=== PATIENT | female | born 1965 | race Hispanic/Latino ===

== ENCOUNTER 2020-04-22 11:02 | Emergency (ER) | payer OTHER, SELFPAY ==
[2020-04-22 12:17] LABS: APPEARANCE,URINE Clear (CLEAR); BILIRUBIN,URINE Negative (NEGATIVE); COLOR,URINE Yellow (YELLOW); GLUCOSE, URINE (UA) Negative (NEGATIVE); KETONES,URINE Negative (NEGATIVE); LEUKOCYTE ESTERASE ,URINE Small (NEGATIVE); NITRATE,URINE Negative (NEGATIVE); OCCULT BLOOD,URINE Small (NEGATIVE); PROTEIN,URINE Negative (NEGATIVE); UROBILINOGEN,URINE 0.2 mg/dL (0.2-1.0)
[2020-04-22 12:36] LABS: BACTERIA,URINE Rare /HPF (None Seen); RBC,URINE 0-1 /HPF (0-1); SQUAMOUS EPITHELIAL CELL,UR Rare /HPF (0-2); WBC,URINE 0-1 /HPF (0-1)
[2020-04-22 13:16] LABS: BASOPHILS % (AUTO) 0.4 % (0.0-5.0); HEMATOCRIT 40.9 % (36-48); LYMPHOCYTES % (AUTO) 54.8 % (21.0-51.0); MEAN CORPUSCULAR HEMOGLOBIN 29.7 pg (27.0-33.0); MEAN CORPUSCULAR HGB CONC 33.5 g/dL (32.0-36.0); MEAN CORPUSCULAR VOLUME 88.5 fL (79-99); NEUTROPHILS % (AUTO) 38.7 % (40.0-77.0); PLATELET COUNT (AUTO) 211 K/uL (130-400); RED BLOOD CELL COUNT(AUTO) 4.62 MIL/uL (4.00-5.50); RED CELL DISTRIBUTION WIDTH 12.9 % (11.0-15.5)
[2020-04-22 14:01] LABS: BILIRUBIN,TOTAL 0.4 mg/dL (0.2-1.0); POTASSIUM 3.9 mmol/L (3.5-5.1); TOTAL PROTEIN, SERUM 8.2 g/dL (6.0-8.3)
[2020-04-22 14:25] LABS: ALBUMIN 3.9 g/dL (3.5-5.0)
== END 2020-04-22 14:32 | disposition home or self-care (01) ==
LOC: EDH 11:02
DX: E16.2 Hypoglycemia, unspecified (principal); I10 Essential (primary) hypertension; Z90.49 Acquired absence of other specified parts of digestive tract; Z90.710 Acquired absence of both cervix and uterus; Z88.8 Allergy status to other drugs, medicaments and biological substances
CPT/HCPCS: 36415; 80053; 81001; 82948; 85025; 93005

== ENCOUNTER 2020-08-28 15:34 | Emergency (ER) | payer OTHER, SELFPAY ==
[2020-08-28] MEDS ORDERED: ACETAMINOPHEN 325 MG TAB ONE (16:10)
[2020-08-28] MEDS ORDERED: IBUPROFEN 600 MG TABLET ONE (16:10)
== END 2020-08-28 17:54 | disposition home or self-care (01) ==
LOC: EDH 15:34
DX: R50.9 Fever, unspecified (principal); R05 Cough; R09.81 Nasal congestion; Z20.828 Contact with and (suspected) exposure to other viral communicable diseases; I10 Essential (primary) hypertension; E11.9 Type 2 diabetes mellitus without complications; Z88.8 Allergy status to other drugs, medicaments and biological substances
CPT/HCPCS: 71045; 87804

== ENCOUNTER 2024-06-03 18:30 | Observation (INO) | payer OTHER ==
[~2024-06-03] VITALS: Ht 167.6 cm; Wt 68.0 kg
[2024-06-03 18:58] LABS: BASOPHILS # (AUTO) 0.04 K/uL (0.00-0.20); BASOPHILS % (AUTO) 0.4 % (0.0-5.0); EOSINOPHILS # (AUTO) 0.11 K/uL (0.00-0.70); EOSINOPHILS % (AUTO) 1.1 % (0.0-8.0); HEMATOCRIT 38.7 % (36-48); IMMATURE GRANULOCYTE ABSOLUTE 0.02 K/uL (0-1); LYMPHOCYTES # (AUTO) 4.6 K/uL (1.0-4.8); LYMPHOCYTES % (AUTO) 48.3 % (21.0-51.0); MEAN CORPUSCULAR HEMOGLOBIN 29.9 pg (27.0-33.0); MEAN CORPUSCULAR HGB CONC 33.9 g/dL (32.0-36.0); MEAN CORPUSCULAR VOLUME 88.4 fL (79-99); MONOCYTES # (AUTO) 0.5 K/uL (0.1-1.0); MONOCYTES % (AUTO) 5.6 % (3.0-13.0); NEUTROPHILS # (AUTO) 4.3 K/uL (1.8-7.7); NEUTROPHILS % (AUTO) 44.4 % (40.0-77.0); PLATELET COUNT (AUTO) 218 K/uL (130-400); RED BLOOD CELL COUNT(AUTO) 4.38 MIL/uL (4.00-5.50); RED CELL DISTRIBUTION WIDTH 12.6 % (11.0-15.5); WHITE BLOOD COUNT (AUTO) 9.6 K/uL (4.8-10.8)
[2024-06-03 19:05] LABS: CREATININE 0.9 mg/dL (0.5-1.0); POTASSIUM 4.6 mmol/L (3.5-5.1)
[2024-06-03 19:34] LABS: B-TYPE NATRIURETIC PEPTIDE 58 pg/mL (0-100)
[2024-06-03] MEDS: hydrALAZine 20MG/ML VIAL IV ONE ×2 (19:37→20:20)
[2024-06-03] MEDS ORDERED: niCARDIpine 25MG INJ 25 MG in 0.9% NACL 250ML 240 ML IV SCH (21:00)
[2024-06-03] MEDS: ondanSETRON 4MG INJ IVP ONE (22:00)
[2024-06-03] MEDS: ketOROlac 15MG/ML VIAL (15MG/ML) IV ONE (22:00)
[2024-06-03] MEDS: 0.9%NACL 1000ML 1,000 ML IV ONE (22:15)
[2024-06-03] MEDS ORDERED: PoTASSium chloRIDE 20MEQ/100ML 100 ML IV PRN (23:30)
[2024-06-03] MEDS ORDERED: ondanSETRON 4MG INJ IV PRN (23:30)
[2024-06-03] MEDS ORDERED: MAGNESIUM 2GM PREMIX 50ML 50 ML IV PRN (23:30)
[2024-06-03] MEDS ORDERED: PoTASSium chl 10% ELIXIR 20MEQ 20 MEQ/15 ML UDCUP PO PRN (23:30)
[2024-06-03] MEDS ORDERED: acetaMINOPHEN 325 MG TAB PO PRN ×2 (23:30)
[2024-06-03] MEDS ORDERED: PoTASSium chloRIDE 20MEQ ER 20 MEQ ERTAB PO PRN (23:30)
[2024-06-04] VITALS (10 sets, daily range): BP systolic 128–161; BP diastolic 52–68; PULSE 59–74; RESP 15–20; TEMP 98.1–98.7; O2SAT 100
[2024-06-04] MEDS ORDERED: ROSU40TA88 PO (01:43)
[2024-06-04] MEDS ORDERED: LOSA100T59 PO (01:43)
[2024-06-04] MEDS ORDERED: AMLO-257 PO (01:43)
[2024-06-04] MEDS: FAMOTIDINE 20MG TAB PO SCH (08:03)
[2024-06-04] MEDS: hydrALAZine 20MG/ML VIAL IV PRN (08:03)
[2024-06-04 08:42] LABS: BASOPHILS # (AUTO) 0.04 K/uL (0.00-0.20); BASOPHILS % (AUTO) 0.4 % (0.0-5.0); EOSINOPHILS # (AUTO) 0.09 K/uL (0.00-0.70); EOSINOPHILS % (AUTO) 0.9 % (0.0-8.0); HEMATOCRIT 38.6 % (36-48); IMMATURE GRANULOCYTE ABSOLUTE 0.02 K/uL (0-1); LYMPHOCYTES # (AUTO) 3.5 K/uL (1.0-4.8); LYMPHOCYTES % (AUTO) 36.7 % (21.0-51.0); MEAN CORPUSCULAR HEMOGLOBIN 29.9 pg (27.0-33.0); MEAN CORPUSCULAR HGB CONC 33.9 g/dL (32.0-36.0); MEAN CORPUSCULAR VOLUME 88.1 fL (79-99); MONOCYTES # (AUTO) 0.6 K/uL (0.1-1.0); MONOCYTES % (AUTO) 5.8 % (3.0-13.0); NEUTROPHILS # (AUTO) 5.4 K/uL (1.8-7.7); PLATELET COUNT (AUTO) 185 K/uL (130-400); RED BLOOD CELL COUNT(AUTO) 4.38 MIL/uL (4.00-5.50); RED CELL DISTRIBUTION WIDTH 13.1 % (11.0-15.5); WHITE BLOOD COUNT (AUTO) 9.6 K/uL (4.8-10.8)
[2024-06-04 08:50] LABS: HEMOGLOBIN A1C 6.3 % (4.0-6.0)
[2024-06-04 08:57] LABS: ALBUMIN 3.7 g/dL (3.5-5.0); BILIRUBIN,TOTAL 0.7 mg/dL (0.2-1.0); CREATININE 0.8 mg/dL (0.5-1.0); MAGNESIUM 2.1 mg/dL (1.80-2.40)
[2024-06-04] MEDS: LoSARTan 100 MG TABLET PO ONE (11:22)
[2024-06-04] MEDS: amLODIPine 5 MG TAB PO ONE (11:22)
[2024-06-04] MEDS: LACTATED RINGERS 1000ML 1,000 ML IV ONE (12:12)
[2024-06-04] MEDS: atorVAStatin 40 MG TABLET PO SCH (20:34)
[2024-06-05 04:00] VITALS: BP 134/71; PULSE 57; RESP 19; TEMP 98.3
[2024-06-05 04:56] LABS: BASOPHILS # (AUTO) 0.04 K/uL (0.00-0.20); BASOPHILS % (AUTO) 0.4 % (0.0-5.0); EOSINOPHILS # (AUTO) 0.14 K/uL (0.00-0.70); EOSINOPHILS % (AUTO) 1.5 % (0.0-8.0); HEMATOCRIT 38.2 % (36-48); IMMATURE GRANULOCYTE ABSOLUTE 0.02 K/uL (0-1); LYMPHOCYTES # (AUTO) 4.2 K/uL (1.0-4.8); LYMPHOCYTES % (AUTO) 44.3 % (21.0-51.0); MEAN CORPUSCULAR HEMOGLOBIN 30.3 pg (27.0-33.0); MEAN CORPUSCULAR HGB CONC 33.5 g/dL (32.0-36.0); MEAN CORPUSCULAR VOLUME 90.3 fL (79-99); MONOCYTES # (AUTO) 0.6 K/uL (0.1-1.0); MONOCYTES % (AUTO) 6.1 % (3.0-13.0); NEUTROPHILS # (AUTO) 4.5 K/uL (1.8-7.7); NEUTROPHILS % (AUTO) 47.5 % (40.0-77.0); PLATELET COUNT (AUTO) 192 K/uL (130-400); RED BLOOD CELL COUNT(AUTO) 4.23 MIL/uL (4.00-5.50); WHITE BLOOD COUNT (AUTO) 9.4 K/uL (4.8-10.8)
[2024-06-05 05:21] LABS: ALBUMIN 3.2 g/dL (3.5-5.0); BILIRUBIN,TOTAL 0.5 mg/dL (0.2-1.0); POTASSIUM 4.3 mmol/L (3.5-5.1); TOTAL PROTEIN, SERUM 6.9 g/dL (6.0-8.3)
[2024-06-05 08:00] VITALS: O2SAT 100
[2024-06-05] MEDS: amLODIPine 5 MG TAB PO SCH (08:14)
[2024-06-05] MEDS: LoSARTan 100 MG TABLET PO SCH (08:14)
[2024-06-05 08:29] VITALS: BP 163/71; PULSE 56; RESP 16; TEMP 97.7
[2024-06-05 11:36] VITALS: BP 151/75; PULSE 54; RESP 16; TEMP 98
[2024-06-05] MEDS ORDERED: LOSA50TA64 PO (12:06)
[2024-06-05] MEDS ORDERED: FAMO20TA8 PO (12:06)
[2024-06-05] MEDS ORDERED: AMLO-258 PO (12:07)
[2024-06-05] MEDS ORDERED: ROSU40TA88 PO (12:28)
== END 2024-06-05 13:35 | disposition home or self-care (01) ==
LOC: EDH 18:30 → EDHIP 23:20 → 3DH 06-04 16:25
PROVIDERS: ADMIT Internal Medicine; ATTEND Internal Medicine
DX: E11.649 Type 2 diabetes mellitus with hypoglycemia without coma (principal); E78.5 Hyperlipidemia, unspecified; I16.0 Hypertensive urgency; M54.50 Low back pain, unspecified; M54.2 Cervicalgia; I11.9 Hypertensive heart disease without heart failure; Z90.710 Acquired absence of both cervix and uterus; Z79.899 Other long term (current) drug therapy
CPT/HCPCS: 96374; 96376; 96361; 96375; 99285; 82550; 84484; 80048; 83880; 85025 ×3; 36415 ×3; 71045; 70450; 93005; 83036; 83735 ×2; 80061; 80053 ×2; G0378 ×38; J0360 ×3; J3490; J2405; J1885; J7050